=== PATIENT | male | born 1955 | race Caucasian/White ===

== ENCOUNTER 2019-06-24 09:44 | Emergency (ER) | payer MEDICARE, OTHER ==
[2019-06-24] MEDS ORDERED: Ketorolac 60 MG/2 ML SDV IM ONE (10:02)
--- NOTE | 2019-06-24 10:15 | EDM.PDOC ---
ED HPI GENERAL MEDICAL PROBLEM - General Chief Complaint: Back Pain or Injury Stated Complaint: Low back pain with radiation into the scrotum L sided Time Seen by Provider: 06/24/19 09:50 Source of Information: Reports: Patient, Old Records History Limitations: Reports: No Limitations - History of Present Illness INITIAL COMMENTS - FREE TEXT/NARRATIVE: Patient is sent in from [facility]. Provider sending patient in indicates that he had a full assessment in clinic for back pain and was ready to be discharged when he indicated that his pain was different from his usual chronic pain and wanted to be sent to the emergency room According to the patient he fell in january last year since then has had localized pain in the lower back. Has been on steroid pills has had physical therapy for 6 weeks currently he is on tramadol and diclofenac. He has not been having much relief from his pain. He has a referral to the pain clinic for next week. Patient indicates that he woke this a.m. with pain more severe than usual. Pain is localized in the lower back but radiates into the left scrotum. He denies having any new injury, fall or aggravating factor that made the pain worse. Pain is localized in the same region as the chronic pain but the intensity is worse. He has no fever no chills he is not incontinent of urine or stool. Patient had an MRI done which showed chronic degenerative changes. Onset: Sudden Onset Date: 06/24/19 Onset Time: 08:00 Duration: Hour(s): (3), Getting Worse Location: Reports: Back, Radiates to (left scrotum) Front/Back Body Image: 1 - localized to this area. Radiates into the left groin and scrotum Quality: Reports: Ache Severity: Severe Improves with: Reports: Rest Worsens with: Reports: Other (standing , sitting makes pain worse), Movement Context: Reports: Trauma Associated Symptoms: Reports: Nausea/Vomiting (Nausea due to the severity of the pain) Treatments COMPLIANCE REVIEWER: Reports: Heat Therapy, NSAIDS Bilateral Back Pain Score (Numeric/FACES): 10 Left Back Pain Score (Numeric/FACES): 10 - Related Data Allergies Allergy/AdvReac Type Severity Reaction Status Date / Time No Known Allergies Allergy Verified 06/24/19 10:07 Home Meds: Home Meds Cyclobenzaprine HCl 5 mg PO TID 06/24/19 [History] Diclofenac Sodium [Voltaren] 75 mg PO BID 06/24/19 [History] Social & Family History - Family History Oncologic: Reports: Pancreatic (father and brother) - Tobacco Use Smoking Status *Q: Never Smoker Used Tobacco, but Quit: No - Living Situation & Occupation 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 ED EXAM,LOWER BACK PAIN/INJURY - Physical Exam Exam: See Below Exam Limited By: No Limitations General Appearance: Alert, WD/WN, Mild Distress (Due to pain) Eye Exam: Bilateral Eye: Normal Inspection Ears: Normal External Exam, Normal TMs Nose: Normal Inspection Head: Atraumatic, Normocephalic Neck: Supple, Non-Tender, Full Range of Motion Respiratory/Chest: Lungs Clear Cardiovascular: Normal Peripheral Pulses GI/Abdominal: Soft, Non-Tender, No Distention (Male) Exam: No Hernia Back Exam: Muscle Spasm, Paraspinal Tenderness. No: Vertebral Tenderness Extremities: Normal Range of Motion, Non-Tender, No Pedal Edema. No: Courtney's Sign, Leg Pain Neurological: Alert, Normal Mood/Affect, Oriented x 3, Abnormal Gait (Antalgic gait due to pain), Straight Leg Raise (L) (Negative), Straight Leg Raise (R) ( Negative) Psychiatric: Flat Affect, Tearful Skin Exam: Warm, Intact, Normal Color Lymphatic: No Adenopathy Course - Vital Signs Text/Narrative:: Patient interviewed and examined and had Toradol injection given .patient taken for CT of the abdomen Last Recorded V/S: Last Vital Signs Temp 36.1 C 06/24/19 09:44 Pulse 58 L 06/24/19 09:44 Resp 18 06/24/19 09:44 BP 140/87 06/24/19 09:44 Pulse Ox 100 06/24/19 09:44 - Orders/Labs/Meds Labs: Laboratory Tests 06/24/19 06/24/19 06/24/19 Range/Units 10:29 10:29 11:15 WBC 6.9 (4.5-12.0) X10-3/uL RBC 5.21 (4.30-5.75) x10(6)uL Hgb 15.6 (13.5-17.8) g/dL Hct 45.4 (30.0-51.3) % MCV 87.3 (80-96) fL MCH 29.9 (27.7-33.6) pg MCHC 34.2 (32.2-35.4) g/dL RDW 12.5 (11.5-15.5) % Plt Count 256 (125-369) X10(3)uL Sodium 141 (135-145) mmol/L Potassium 4.5 (3.5-5.3) mmol/L Chloride 103 (100-110) mmol/L Carbon Dioxide 28 (21-32) mmol/L BUN 21 H (7-18) mg/dL Creatinine 1.2 (0.70-1.30) mg/dL Est Cr Clr Drug Dosing TNP Estimated GFR (MDRD) > 60 (>60) BUN/Creatinine Ratio 17.5 (9-20) Glucose 116 (80-116) mg/dL Calcium 9.2 (8.6-10.2) mg/dL Total Bilirubin 0.6 (0.1-1.3) mg/dL AST 21 (5-25) IU/L ALT 35 (12-36) U/L Alkaline Phosphatase 94 (56-112) IU/L Total Protein 7.2 (6.0-8.0) g/dL Albumin 4.1 (3.2-4.6) g/dL Globulin 3.1 g/dL Albumin/Globulin Ratio 1.3 Urine Color Yellow (YELLOW) Urine Appearance Clear (CLEAR) Urine pH 7.0 H (5.0-6.5) Ur Specific Muse 1.010 (1.010-1.025) Urine Protein Negative (NEGATIVE) mg/dL Urine Glucose (UA) Normal (NORMAL) mg/dL Urine Ketones Negative (NEGATIVE) mg/dL Urine Occult Blood Negative (NEGATIVE) Urine Nitrite Negative (NEGATIVE) Urine Bilirubin Negative (NEGATIVE) Urine Urobilinogen Normal (NEGATIVE) mg/dL Ur Leukocyte Esterase Negative (NEGATIVE) Urine RBC 0-5 (0-5) Urine WBC 0-5 (0-5) Ur Squamous Epith Cells Occasional (NS,R,O) Urine Bacteria Few H (NS) Meds: Medications Discontinued Medications Generic Name Dose Route Start Last Admin Trade Name Ulises PRN Reason Stop Dose Admin Iopamidol 100 ml 06/24/19 11:13 06/24/19 11:50 Isovue-370 (76%) IV 06/24/19 11:14 96 ml ONETIME ONE Administration Ketorolac Tromethamine 60 mg 06/24/19 10:02 06/24/19 10:07 Toradol IM 06/24/19 10:03 60 mg ONETIME ONE Administration Lidocaine 700 mg 06/24/19 10:35 06/24/19 10:45 Lidoderm 5% TOP 06/24/19 10:36 700 mg ONETIME ONE Administration - Re-Assessments/Exams Free Text/Narrative Re-Assessment/Exam: 06/24/19 13:07 pt had IM Toradol and Lidoderm patch , pain is better controlled pt also had imaging done of the abd : CT stone protocol done , was suggestive of pancreatic mass, CT with contrast recommended and done . Discussed same with pt. Father of pancreatic cancer and his brother. discussed need to connect with specialist in [facility] pt agrees Free Text/Narrative Re-Assessment/Exam: 06/24/19 13:38 had to wait 40mins before report of CT abd w contrast was typed to be able to call [facility] 06/24/19 13:51 call to [facility] applications analyst via one call 06/24/19 13:58 pt was accepted for admission in [facility] discussed with patient and he is agreeable to go for admission Departure - Departure Time of Disposition: 14:02 Disposition: DC/Tfer to [facility] Condition: Good Clinical Impression: Pancreatic tumor - Discharge Information *PRESCRIPTION DRUG MONITORING PROGRAM REVIEWED*: Yes *COPY OF PRESCRIPTION DRUG MONITORING REPORT IN PATIENT PEPE: No Referrals: Susan Astudillo NP [Primary Care Provider] - Forms: ED Department Discharge - Problem List & Annotations (1) Diverticulosis SNOMED Code(s): 609756693 Code(s): K57.90 - DVRTCLOS OF INTEST, PART UNSP, W/O PERF OR ABSCESS W/O BLEED Status: Acute Current Visit: Yes (2) Herniated lumbar disc without myelopathy SNOMED Code(s): 35125927 Code(s): M51.26 - OTHER INTERVERTEBRAL DISC DISPLACEMENT, LUMBAR REGION Status: Acute Current Visit: Yes (3) DJD (degenerative joint disease), multiple sites SNOMED Code(s): 879501418 Code(s): M15.9 - POLYOSTEOARTHRITIS, UNSPECIFIED Status: Acute Current Visit: Yes - Problem List Review Problem List Initiated/Reviewed/Updated: Yes - Assessment/Plan Plan: Pt to be transfered to [facility] for further assessment and management
[2019-06-24] MEDS ORDERED: Lidocaine 5% 700 MG Patch TOP ONE (10:35)
[2019-06-24] MEDS ORDERED: Iopamidol 755 Mg/ML 100 ML Bottle IV ONE (11:13)
--- NOTE | 2019-06-24 12:15 | CT ---
INDICATION: Severe left flank pain radiating to the scrotum, history of back pain. CT ABDOMEN AND PELVIS WITHOUT CONTRAST: Spiral 2.5 mm axial sections were obtained through the abdomen and pelvis with renal calculus protocol - sagittal and coronal reconstructions and no contrast. Examination was obtained 06/24/19 - no comparisons are available. Total exam DLP = 1,061.74 mGy-cm. Lower lung ruiz and pleural spaces visualized appeared normal. The heart was normal in size. No pericardial effusion was seen. Multiple low density lesions are noted in the liver, mostly fairly tiny in size , the largest measuring approximately 15 mm in the right lobe of the liver on axial image #34. Most likely these represent cystic structures. They are low in density. No gallstones were demonstrated. No definite adrenal gland abnormality was seen. A 2.3 cm low density lesion, exophytic off the upper pole medial cortex of the left kidney is noted, compatible with a simple cyst. Renal cortical scarring is noted with renal fascial thickening. No evidence of renal calcinosis or renal obstruction was seen - no obstructive uropathy is identified. The spleen had a normal appearance. Exophytically off the tail of the pancreas, there is a 20 mm mass, which is relatively high in density, likely representing a tumor of the pancreas. Examination with contrast is recommended for further evaluation. The pancreas was otherwise unremarkable. No biliary tree dilatation was seen. No retroperitoneal masses were otherwise identified. There is retroperitoneal lymphadenopathy of mild degree, which is nonspecific. What appears to be the appendix appeared normal. Descending and sigmoid diverticulosis is noted without evidence of diverticulitis. Slight thickening of the wall of the urinary bladder is suggested of questionable significance - could be on the basis of a mild degree of cystitis - correlate clinically. The prostate was prominent, measuring 56 x 36 x 48 mm. Degenerative changes and disk disease are noted at L2-3. Slight narrowing of the L4-5 disk space is noted, suggesting disk disease there also. There is a bulge of the disk centrally at that level with bulging of the disk at L2-3 also noted posteriorly. No evidence of free air or bowel obstruction was seen. No additional mass lesions, organomegaly, or free fluid collections were identified in the abdomen or pelvis. IMPRESSION: 1. No evidence of obstructive uropathy or renal calcinosis. 2. Mass at the tail of the pancreas, likely a tumor. Contrast examination recommended. 3. Mild ASD with some minimal calcifications in the aorta and iliac arteries. 4. Renal cortical scarring of mild degree. 5. Probable renal cyst, simple type, on the left. 6. Low density lesions of the liver, likely cystic in nature. 7. Degenerative changes and disk disease L2-3 and probable disk disease L4-5. Report was called to Dr. Snyder at 1052 hours on 06/24/19. [facility]
--- NOTE | 2019-06-24 13:33 | CT ---
INDICATION: Abdominal/left lower quadrant pain. CT ABDOMEN AND PELVIS WITH CONTRAST (PANCREATIC PROTOCOL): Spiral 3.75 mm axial sections were obtained through the abdomen and pelvis with oral and IV contrast (96 mL Isovue 370 at 2 mL/second with 45 and 70 second delays), with sagittal and coronal reconstructions, 06/24/19, and were compared with the noncontrast study. Total exam DLP = 2,454.67 mGy-cm. The 20 mm mass at the tail of the pancreas, mostly exophytic, increases from 38.5 Hounsfield units to 137.28 Hounsfield units after contrast and, after the delay, decreases to 78.56 Hounsfield units. Neoplastic process is suggested in this area. Further workup is recommended. No other pancreatic tumors are identified. There are some minimal lymph nodes present, which may be nonspecific. The kidneys showed no evidence of pyelonephritis or obstructive uropathy or mass lesions. No other retroperitoneal masses were identified. No gallstones were seen. The low density lesions in the liver are still visualized as such. No additional mass lesions were identified in the abdomen or pelvis. Thickening of the urinary bladder wall is noted, which could be on the basis of trabeculation and/or cystitis and should be correlated clinically. Diverticulosis coli is noted without definite evidence of diverticulitis. No bowel obstruction or free air was seen. IMPRESSION: Pancreatic mass compatible with neoplasia, workup recommended. Report was called to Dr. Snyder at 1222 hours on 06/24/19. [facility]
[2019-06-24] MEDS ORDERED: Morphine 10 MG/ML Syringe IVPUSH ONE (14:12)
[2019-06-24] MEDS ORDERED: Morphine 10 MG/ML SDV IVPUSH ONE (14:30)
== END 2019-06-24 14:57 | disposition critical access hospital (66) ==
LOC: FB.ED 09:44
DX: D49.0 Neoplasm of unspecified behavior of digestive system (principal)
CPT/HCPCS: 36415; 74176; 74177; 80053; 81001; 85027; 96372; 96374; 99284-25; 99285; A9270-GY; J1885; J2270; Q9967